=== PATIENT | male | born 1975 | race African-American/Black ===

== ENCOUNTER 2016-12-27 08:23 | Emergency (ER) | payer SELFPAY ==
[~2016-12-27] VITALS: Ht 167.6 cm; Wt 66.0 kg
[~2016-12-27 08:23] MED LIST: IBUP800T23 PO; MEDR4PAK3 PO
[2016-12-27 08:24] VITALS: BP 159/98; PULSE 83; RESP 16; TEMP 98.2; O2SAT 100
[2016-12-27] MEDS ORDERED: IBUPROFEN 800 MG TAB PO ONE (08:45)
--- NOTE | 2016-12-27 08:45 | PD ---
HPI Chief Complaint: Injury Time Seen by Provider: 08:45 Travel History International Travel<30 days: No Contact w/Intl Traveler<30days: No Traveled to known affect area: No History of Present Illness HPI 41-year-old male presents to the emergency department with complaint of pain and swelling to his right middle finger for approximately one week. Denies new or recent injury. Reports fracturing the finger a few years ago. Denies paresthesias, loss of sensation. Reports decreased range of motion secondary to pain and swelling. Pain is aggravated with movement and touch. Denies fever , chills, nausea, vomiting. Took Advil last night with minimal relief of pain. Has not tried any other treatments or vacations to alleviate his symptoms. No known allergies. Denies significant past medical history. No other modifying factors or associated signs and symptoms. PFSH Past Medical History Medical History: Denies Significant Hx Diminished Hearing: No Social History Alcohol Use: Yes (PINT DAILY) Tobacco Use: Yes (2-3 CIGARS DAILY) Substance Use: Yes (marijuana) Allergies-Medications (Allergen,Severity, Reaction): Coded Allergies: No Known Allergies (Unverified , 09/22/15) Reported Meds & Prescriptions Reported Meds & Active Scripts Active Ibuprofen 800 Mg Tab 800 Mg PO Q6HR PRN Bactrim DS (Sulfamethoxazole-Trimethoprim) 800-160 Mg Tab 1 Tab PO BID 10 Days Keflex (Cephalexin) 500 Mg Cap 500 Mg PO Q6H 10 Days Ibuprofen 800 Mg Tab 800 Mg PO TID Medrol Dosepak (Methylprednisolone) 4 Mg Braydon 4 Mg PO DIRECTED TAKE DIRECTED Review of Systems Except as stated in HPI: all other systems reviewed are Neg Physical Exam Narrative GENERAL: Well-nourished, well-developed male patient, in no acute distress SKIN: Warm and dry. HEAD: Atraumatic. Normocephalic. EYES: Pupils equal and round. No scleral icterus. No injection or drainage. ENT: Mucosa pink and moist. Airway patent. NECK: Trachea midline. CARDIOVASCULAR: Regular rate. RESPIRATORY: No accessory muscle use. GASTROINTESTINAL: Flat. MUSCULOSKELETAL: Right third finger is edematous and nonerythematous; without warmth to touch; with limited range of motion secondary to pain and swelling; sensory intact; less than 3 second cap refill; no obvious deformities. Right upper extremity supple and non-tense with 2+ radial pulse and sensory intact without erythema or edema. No obvious deformities. No clubbing. No cyanosis. No edema. NEUROLOGICAL: Awake and alert. Oriented 3. No obvious cranial nerve deficits. Motor grossly within normal limits. Normal speech. PSYCHIATRIC: Appropriate mood and affect; insight and judgment normal. Data Data Last Documented VS Vital Signs Date Time Temp Pulse Resp B/P Pulse Ox O2 Delivery O2 Flow Rate FiO2 12/27/16 08:33 79 18 99 Room Air 12/27/16 08:24 98.2 159/98 Orders Finger ([id number]) (12/27/16 ) Ibuprofen (Motrin) (12/27/16 08:45) Splint Or Brace Apply/Monitor (12/27/16 09:45) Tetanus/Diphtheria Tox Adult (Tetanus/Di (12/27/16 09:45) Mandatory Outpatient Referral (12/27/16 09:52) [facility] Medical Decision Making Medical Screen Exam Complete: Yes Emergency Medical Condition: Yes Medical Record Reviewed: Yes Differential Diagnosis Fracture, dislocation, cellulitis, arthritis Narrative Course 41-year-old male with right third digit swelling. Denies any recent injury. History of fracture to the same finger. Rate approximately supplemental for 2+ radial pulse and sensory intact without erythema or edema. I will x-ray the finger to rule out fracture, dislocation. Right finger x-ray ordered. Ibuprofen ordered. 0939: Right third digit x-ray concludes Soft tissue swelling with a tiny less than 1 mm high density structure along the dorsum of the proximal phalanx. This could represent a minute avulsion fracture or possible radiopaque foreign body. I will treat the patient for suspected cellulitis secondary to a possible foreign body and I will treat the patient for possible minute avulsion fracture. Finger splint applied and fingers alex taped together. Instructed patient to follow up with hand. Mandatory outpatient referral ordered as patient does not have insurance. Keflex, Bactrim , ibuprofen prescribed for home. Patient verbalizes agreement to treatment plan. Patient is medically cleared and stable for discharge. Discussed reasons to return to the emergency department. Instructed patient to follow up with primary care provider. Patient agrees with treatment plan. The patients vital signs are stable and the patient is stable for outpatient follow-up and treatment. Patient discharged home, stable and in no acute distress. Diagnosis Primary Impression: Swelling of right middle finger Referrals: Hand Surgeon Primary Care Physician Patient Instructions: Cellulitis (ED), Finger Fracture (ED), General Instructions Departure Forms: Tests/Procedures, Work Release Enter return to work date: Dec 28, 2016 Additional Instructions: Complete full course of antibiotics Warm compresses to the affected area Keep area clean and dry Ibuprofen or Tylenol as directed and as needed for pain and inflammation Finger splint for support; alex tape the fingers for support Follow-up with primary care provider Return to emergency department immediately with worsening of symptoms Med/Other Pt SpecificInfo: Prescription(s) given Scripts Ibuprofen 800 Mg [id number] Mg PO Q6HR PRN (PAIN) #30 TAB Ref 0 Prov:Ijeoma Castro 12/27/16 Sulfamethoxazole-Trimethoprim (Bactrim DS)800-160 Mg Tab1 Tab PO BID 10 Days Ref 0 Prov:Ijeoma Castro 12/27/16 Cephalexin (Keflex)500 Mg [id number] Mg PO Q6H 10 Days Ref 0 Prov:Ijeoma Castro 12/27/16 Disposition: 01 DISCHARGE HOME Condition: Stable Ijeoma Castro Dec 27, 2016 08:45
--- NOTE | 2016-12-27 09:22 | RADRPT ---
EXAM DATE/TIME: 12/27/2016 09:01 [facility] COMPARISON: No previous studies available for comparison. INDICATIONS : Right hand, third digit pain and swelling. No known injury. MEDICAL HISTORY : None. SURGICAL HISTORY : Unknown surgery to third digit 7 years ago. ENCOUNTER: Initial ACUITY: 2 weeks PAIN SCORE: 10/10 LOCATION: Right distal third digit FINDINGS: Examination of the third digit of the right hand demonstrates no evidence of fracture or dislocation. There is a tiny less than 1 mm high density structure in the dorsal soft tissues adjacent to the dis evi aspect of the proximal phalanx. There is soft tissue swelling over the third proximal interphalan geal joint. CONCLUSION: Soft tissue swelling with a tiny less than 1 mm high density structure along the dors um of the proximal phalanx. This could represent a minute avulsion fracture or possible radiopaque fo reign body. Kojo Cisneros MD on December 27, 2016 at 9:19 Board Certified Radiologist. This report was verified electronically.
[2016-12-27] MEDS ORDERED: CEPH-460 PO (09:45)
[2016-12-27] MEDS ORDERED: IBUP800T23 PO (09:45)
[2016-12-27] MEDS ORDERED: TETANUS/DIPHTHERIA TOXOID ADULT 0.5 ML VIAL IM ONE (09:45)
[2016-12-27] MEDS ORDERED: BACT800T5 PO (09:45)
== END 2016-12-27 10:00 | disposition home or self-care (01) ==
LOC: NEPB 08:23
DX: M79.89 Other specified soft tissue disorders (principal); Z23 Encounter for immunization
CPT/HCPCS: 73140; 90471; 90714

== ENCOUNTER 2017-01-10 09:53 | Emergency (ER) | payer OTHER ==
[~2017-01-10] VITALS: Ht 167.6 cm; Wt 65.0 kg
[~2017-01-10 09:53] MED LIST changes: +BACT800T5 PO; +CEPH-460 PO
[2017-01-10 09:54] VITALS: BP 148/98; PULSE 92; RESP 15; TEMP 98; O2SAT 98
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
[2017-01-10] MEDS ORDERED: ACETAMINOPHEN/HYDROcodone 325 MG/5 MG TAB PO ONE (10:15)
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
[2017-01-10] MEDS ORDERED: IBUP-232 PO (10:53)
[2017-01-10 11:51] VITALS: BP 137/79
== END 2017-01-10 11:53 | disposition home or self-care (01) ==
LOC: NEPA 09:53
DX: S00.03XA Contusion of scalp, initial encounter (principal); S86.911A Strain of unspecified muscle(s) and tendon(s) at lower leg level, right leg, initial encounter; V49.40XA Driver injured in collision with unspecified motor vehicles in traffic accident, initial encounter
CPT/HCPCS: 73564; 99284; L1810

== ENCOUNTER 2018-04-06 20:58 | Emergency (ER) | payer BC ==
[~2018-04-06 20:58] MED LIST changes: -BACT800T5 PO; -CEPH-460 PO; +IBUP-232 PO; -IBUP800T23 PO; -MEDR4PAK3 PO
[2018-04-06 21:18] VITALS: BP 146/87; PULSE 93; RESP 18; TEMP 99.1; O2SAT 100
[2018-04-06] MEDS ORDERED: METOCLOPRAMIDE HCL 10 MG/2 ML VIAL IV PUSH ONE (22:30)
[2018-04-06] MEDS ORDERED: SODIUM CHLORIDE 0.9% FLUSH 10 ML FLUSH IV FLUSH PRN (22:30)
[2018-04-06] MEDS ORDERED: ALUMINUM/MAGNESIUM/SIMETH 30 ML CUP PO ONE (22:30)
[2018-04-06] MEDS ORDERED: LIDOCAINE VISCOUS 2% SOLN 15 ML UDC PO ONE (22:30)
[2018-04-06] MEDS ORDERED: PANTOPRAZOLE SODIUM 40 MG VIAL IVP ONE (22:30)
[2018-04-06] MEDS ORDERED: SODIUM CHLOR 0.9% 1000 ML INJ 1,000 ML IV SCH (22:30)
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
[2018-04-07 00:33] LABS: BILIRUBIN, URINE NEG (NEG); BLOOD, URINE SMALL (NEG); GLUCOSE,URINE NEG (NEG); HYALINE CAST, URINE 20 /lpf (RARE); KETONE, URINE 150 mg/dL (NEG); MUCUS URINE FEW /lpf (OCC); NITRITE,URINE NEG (NEG); PH, URINE 5.5 (5.0-8.5); SQUAMOUS EPITHELIAL CELL URINE 1 /hpf (0-5); URINE COLOR YELLOW (YELLW/STRAW); URINE LEUKOCYTE ESTERASE NEG (NEG)
[2018-04-07 00:41] LABS: BASOPHIL % 0.3 % (0.0-2.0); HEMOGLOBIN 14.2 GM/DL (13.0-17.0); LYMPH % 6.7 % (9.0-44.0); MEAN CELL VOLUME 89.1 FL (80.0-100.0); MEAN CORPUSCULAR HEMOGLOBIN 29.5 PG (27.0-34.0); MEAN CORPUSCULAR HGB CONC 33.1 % (32.0-36.0); MEAN PLATELET VOLUME 8.9 FL (7.0-11.0); MONO % 6.5 % (0.0-8.0); NEUT % 86.5 % (16.0-70.0); PLATELET COUNT 225 TH/MM3 (150-450); RED BLOOD COUNT 4.83 MIL/MM3 (4.50-5.90); RED CELL DISTRIBUTION WIDTH 13.8 % (11.6-17.2)
[2018-04-07 00:55] LABS: ALBUMIN 4.3 GM/DL (3.4-5.0); AST (GOT) 57 U/L (15-37); BICARBONATE 23.2 MEQ/L (21.0-32.0); BLOOD UREA NITROGEN 15 MG/DL (7-18); CALCIUM 9.6 MG/DL (8.5-10.1); CHLORIDE 98 MEQ/L (98-107); CREATININE 1.12 MG/DL (0.60-1.30); GLOMERULAR FILTRATION RATE 88 ML/MIN (>89); GLUCOSE,RANDOM 116 MG/DL (74-106); SODIUM (NA) 138 MEQ/L (136-145)
[2018-04-07 00:59] LABS: ALKALINE PHOSPHATASE 128 U/L (45-117); ALT (GPT) 108 U/L (12-78); TOTAL BILIRUBIN ADULT 0.6 MG/DL (0.2-1.0); TOTAL PROTEIN 8.5 GM/DL (6.4-8.2)
[2018-04-07] MEDS ORDERED: ZOFR4TAB PO (01:01)
== END 2018-04-07 01:47 | disposition home or self-care (01) ==
LOC: NEPD 20:58
DX: F10.10 Alcohol abuse, uncomplicated (principal); R11.2 Nausea with vomiting, unspecified; K29.70 Gastritis, unspecified, without bleeding; Z72.0 Tobacco use
CPT/HCPCS: 80053; 81001; 83690; 85025; 96374; 96375; 99284; C9113; J2765; J7030